=== PATIENT | male | born 1970 | race Caucasian/White ===

== ENCOUNTER 2019-10-13 14:49 | Emergency (ER) | payer MEDICARE, OTHER, SELFPAY ==
[2019-10-13 15:04] VITALS: BP 139/87; PULSE 69; RESP 20; TEMP 36.6; O2SAT 95
--- NOTE | 2019-10-13 15:06 | DI.RAD.S_ITS ---
PROCEDURE: XR CHEST 2V INDICATIONS: cough x10 days TECHNIQUE: 2 views of the chest were acquired. COMPARISON: None. FINDINGS: Surgical changes and devices: None. Lungs and pleura: Lungs are clear. No pleural effusions or pneumothorax. Mediastinum: Mediastinal contours are normal. Heart size is normal. Bones and chest wall: No suspicious bony abnormalities. Degenerative changes of the spine and shoulders are not well characterized. Soft tissues appear unremarkable. IMPRESSION: Negative chest. No acute cardiopulmonary process is evident. Dictated by: Nahun Fuller M.D. on 10/13/2019 at 15:06 Approved by: Nahun Fuller M.D. on 10/13/2019 at 15:07
[2019-10-13] MEDS: ALBUTEROL 2.5 MG/3 ML NEB (ADULT) INH (16:45)
[2019-10-13 17:23] VITALS: PULSE 70; RESP 18; O2SAT 98
--- NOTE | 2019-10-13 18:10 | ED.URI ---
HPI - URI/Sore Throat <KATHY Gauthier - Last Filed: 10/13/19 18:13> General Chief Complaint: Upper Respiratory Symptoms Stated Complaint: upper respiratory issues Time Seen by Provider: 10/13/19 16:25 Source: patient and family Mode of arrival: Ambulatory Limitations: no limitations History of Present Illness HPI Narrative: The patient is a 49-year-old male nonsmoker who denies pertinent medical history presents with a chief complaint of cough for 10 days. He denies any fevers nausea vomiting or diarrhea. He denies any shortness of breath. He states he has been wheezing on and off, used his 's inhaler. Denies any history of asthma, COPD cetera. Denies any muscle aches or chills. Denies any sore throat or ear pain. Related Data Previous Rx's Medication Instructions Recorded albuterol sulfate 2 puff INHALATION Q4-6H PRN #18 10/13/19 gram benzonatate [Tessalon Perles] 100 mg PO BID-TID PRN #20 cap 10/13/19 Allergies Allergy/AdvReac Type Severity Reaction Status Date / Time No Known Drug Allergies Allergy Verified 10/13/19 15:06 Review of Systems <KATHY Gauthier - Last Filed: 10/13/19 18:13> Review of Systems Narrative: GENERAL: Denies chills, fatigue, malaise, fever, sweats. HEENT: Denies sinus pain, ear pain, sore throat, difficulty swallowing, dizziness. RESPIRATORY: See HPI CARDIOVASCULAR: Denies chest pain, palpitations, orthopnea, edema, GASTROINTESTINAL: Denies nausea, vomiting, abdominal pain, diarrhea, constipation, melena. : Denies dysuria, frequency, incontinence, hematuria, urinary retention. MUSCULOSKELETAL: denies weakness, joint pain, or bony pain SKIN: Denies rash, skin lesions, or other NEUROLOGIC: Denies weakness, headache, numbness, change in speech, confusion, seizures, incoordination. PSYCHIATRIC: No concerning psychosocial issues. 12 point review of systems is negative except for those stated above Patient History <KATHY Gauthier - Last Filed: 10/13/19 18:13> Social History Smoking Status: Never smoker Smoking Status: Never smoker Exam <KATHY Gauthier - Last Filed: 10/13/19 18:13> Narrative Exam Narrative: GENERAL: This is a well-nourished, well-developed patient, in mild distress. HEAD: Atraumatic. Normocephalic. No temporal or scalp tenderness. EYES: Pupils equal round and reactive. Extraocular motions intact. No scleral icterus. No injection or drainage. ENT: Nose without bleeding, purulent drainage or septal hematoma. Throat without erythema, tonsillar hypertrophy or exudate. Uvula midline. Airway patent. NECK: Trachea midline. No JVD or lymphadenopathy. Supple, nontender, no meningeal signs. CARDIOVASCULAR: Regular rate and rhythm without murmurs, gallops, or rubs. RESPIRATORY: Clear to auscultation. Breath sounds equal bilaterally. No rales, or rhonchi. Occasional dry cough. Slight expiratory wheeze bilaterally. No retractions. No increased respiratory effort. No accessory muscle use. GASTROINTESTINAL: Abdomen soft, non-tender, nondistended. No hepato-splenomegaly, or palpable masses. No guarding. Active bowel sounds all 4 quadrants EXTREMITIES: No clubbing, cyanosis, or edema. No joint tenderness, effusion, or edema noted. BACK: Nontender without deformity or crepitance. No flank tenderness. NEURO: AOx3. SKIN: No rash or erythema on visible skin Initial Vital Signs Initial Vital Signs: Vital Signs Temperature 97.8 F 10/13/19 15:04 Pulse Rate 69 10/13/19 15:04 Respiratory Rate 20 10/13/19 15:04 Blood Pressure 139/87 10/13/19 15:04 Pulse Oximetry 95 10/13/19 15:04 <Regi Aguilar DO - Last Filed: 10/13/19 19:35> Initial Vital Signs Initial Vital Signs: Vital Signs Temperature 97.8 F 10/13/19 15:04 Pulse Rate 69 10/13/19 15:04 Respiratory Rate 20 10/13/19 15:04 Blood Pressure 139/87 10/13/19 15:04 Pulse Oximetry 95 10/13/19 15:04 Course <SUHA Gauthier-BC - Last Filed: 10/13/19 18:13> Orders Ordered: ED Orders 10/13/19 15:06 Chest [XR chest 2V] Stat 10/13/19 16:41 RT Consult Eval and Treat NOW Discontinued Medications Albuterol (Ventolin) 2.5 mg INH NOW ONE Stop: 10/13/19 16:43 Last Admin: 10/13/19 16:45 Dose: 2.5 mg Documented by: STHOMP Vital Signs Vital signs: Vital Signs - 8 hr 10/13/19 15:04 10/13/19 17:23 Temperature 97.8 F Pulse Rate 69 70 Respiratory Rate 20 18 Blood Pressure 139/87 Pulse Oximetry 95 98 <Regi Aguilar DO - Last Filed: 10/13/19 19:35> Orders Ordered: ED Orders 10/13/19 15:06 Chest [XR chest 2V] Stat 10/13/19 16:41 RT Consult Eval and Treat NOW Discontinued Medications Albuterol (Ventolin) 2.5 mg INH NOW ONE Stop: 10/13/19 16:43 Last Admin: 10/13/19 16:45 Dose: 2.5 mg Documented by: STHOMP Vital Signs Vital signs: Vital Signs - 8 hr 10/13/19 15:04 10/13/19 17:23 Temperature 97.8 F Pulse Rate 69 70 Respiratory Rate 20 18 Blood Pressure 139/87 Pulse Oximetry 95 98 MDM - URI/Sore Throat <KATHY Gauthier - Last Filed: 10/13/19 18:13> Imaging Data Chest x-ray: Radiologist's impression: [place] [address] XRay Report Signed Patient: Sincere Collazo [facility]#: [id number] : 1970Acct:[id number] Age/Sex: 49 / MDate of Service: 10/13/19 Loc: ED Accession Number: [id number] Procedure: XR chest 2V Ordering Provider: Regi Aguilar D.O. PROCEDURE: XR CHEST 2V INDICATIONS: cough x10 days TECHNIQUE: 2 views of the chest were acquired. COMPARISON: None. FINDINGS: Surgical changes and devices: None. Lungs and pleura: Lungs are clear. No pleural effusions or pneumothorax. Mediastinum: Mediastinal contours are normal. Heart size is normal. Bones and chest wall: No suspicious bony abnormalities. Degenerative changes of the spine and shoulders are not well characterized. Soft tissues appear unremarkable. IMPRESSION: Negative chest. No acute cardiopulmonary process is evident. Dictated by: Nahun Fuller M.D. on 10/13/2019 at 15:06 Approved by: Nahun Fuller M.D. on 10/13/2019 at 15:07 [facility] Narrative Medical decision making narrative: The patient is a 49-year-old male who presents with a chief complaint of a cough for 10 days. X-ray shows no pneumonia. He denies any systemic symptoms of fevers nausea vomiting or diarrhea. Slight wheeze, so he was given albuterol in the emergency department. He is given spacer teaching I sent in a prescription of Tessalon Perles and an albuterol inhaler. Encourage PCP follow-up the next few days. Discussed coming back to the emergency department for any acute concerns such as chest pain, shortness of breath etcetera. Given patient's clear x-ray and lack of systemic symptoms will hold off on antibiotics at this point time. Patient is agreement. No questions or concerns upon discharge states understanding of return precautions as well as follow-up care. Discharge Plan Departure Patient Disposition: Home Clinical Impression: Bronchitis Discharge Date/Time: 10/13/19 17:26 Instructions: DI for Acute Bronchitis Activity Restrictions/Additional Instructions: I sent 2 prescriptions to the [facility] pharmacy Your x-ray shows no acute pneumonia. I've given you an albuterol to help with your wheezing I've given you Tessalon Perles to help with her cough. I suggest continued [id number] cough medications. Please follow-up with primary care provider next few days, especially if worsening or no improvement. Please come back to emergency department for any acute concerns such as shortness of breath etc. Prescriptions: New albuterol sulfate 90 mcg/actuation HFA aerosol inhaler 2 puff INHALATION Q4-6H PRN (Reason: shortness of breath or wheezing) Qty: 18 RF: 0 benzonatate [Tessalon Perles] 100 mg capsule 100 mg PO BID-TID PRN (Reason: cough) Qty: 20 RF: 0 Referrals: [facility] [Provider Group]
== END 2019-10-13 17:26 | disposition home or self-care (01) ==
PROVIDERS: Emergency Provider Nurse Practitioner Family
DX: J40 Bronchitis, not specified as acute or chronic (principal)
CPT/HCPCS: 71046; 99283; J7613